=== PATIENT | female | born 1985 | race Caucasian/White ===

== ENCOUNTER 2019-02-21 15:01 | Emergency (ER) ==
[2019-02-21 15:10] VITALS: BP 108/64; TEMP 99.5; BMI 26.6
--- NOTE | 2019-02-21 15:40 | ED.PDOC ---
General ED Provider: Dr. SUSI GARCIA Chief Complaint: Headache Stated Complaint: headache Time Seen by Physician: 15:38 (seen with nato) Mode of Arrival: Walk-In Information Source: Patient Exam Limitations: No limitations Nursing and Triage Documentation Reviewed and Agree: Yes Does patient meet sepsis criteria?: No System Inflammatory Response Syndrome: Not Applicable Sepsis Protocol: For patient's 13 years and over: Temp is 96.8 and below OR 101 and greater Pulse >90 BPM Resp >20/minute Acutely Altered Mental Status Are patient's symptoms suggestive of a new infection, such as: -Pneumonia -Skin, Soft Tissue -Endocarditis -UTI -Bone, Joint Infection -Implantable Device -Acute Abdominal Infection -Wound Infection -Meningitis -Blood Stream Catheter Infection -Unknown Neurological Complaint Exam - Headache Complaint/Exam Onset: Gradual Duration: 4 days Symptoms Are: Still present Timing: Constant Episodes Lasting: Days Worst Headache Ever: No Initial Severity: Moderate Current Severity: Moderate Location: Right, Frontal, Temporal Character: Reports: Throbbing Aggravating: Reports: None Alleviating: Reports: None Associated Signs and Symptoms: Denies: Dizziness, Seizure, Nausea, Vomiting, Sinus pressure, Fever, Neck pain, Neck stiffness, Decreased LOC, Visual changes Related History: Reports: Similar episode Related Surgical History: Reports: None SAH Risk Factors: Reports: None Meningitis Risk Factors: Reports: None SDH Risk Factors: Reports: None Temporal Arteritis Risk Factors: Reports: None Fundoscopic Exam: Present: Normal Findings Papilledema Present: No Temporal Artery Tenderness: Present: None Sinus Tenderness: Present: None TMJ Tenderness: Present: None Glascow Coma Scale (see protocol): 15 Meningeal Signs Positive: No Pain on Passive Flexion-Positive Kernig's: No ROM Limited In: No Limitiations Focal Weakness: Present: None Focal Sensory Loss: Present: None Gait: Normal Nystagmus Present: No Gag Reflex Present: Yes [id number]: Normal Findings Romberg Test Positive: No Differential Diagnoses: Migraine Review of Systems - Review Of Systems Constitutional: Reports: No symptoms Eyes: Reports: No symptoms Ears, Nose, Mouth, Throat: Reports: No symptoms Respiratory: Reports: No symptoms Cardiac: Reports: No symptoms GI: Reports: No symptoms : Reports: No symptoms Musculoskeletal: Reports: No symptoms Skin: Reports: No symptoms Neurological: Reports: Headache Endocrine: Reports: No symptoms Hematologic/Lymphatic: Reports: No symptoms All Other Systems: Reviewed and Negative Past Medical History - Past Medical History Previously Healthy: Yes Endocrine: Reports: None Cardiovascular: Reports: None Respiratory: Reports: None Hematological: Reports: None Gastrointestinal: Reports: None Genitourinary: Reports: None Neuro/Psych: Reports: Migraine Musculoskeletal: Reports: None Cancer: Reports: None Last Menstrual Period: 02/11/19 - Surgical History General Surgical History: Reports: None - Family History Family History: Reports: None - Social History Smoking Status: Former smoker Hx Substance Use: No Alcohol Screening: Occasionally Physical Exam - Physical Exam Appearance: Well-appearing, No pain distress, Well-nourished Eyes: XAVIER, EOMI, Conjunctiva clear ENT: Ears normal, Nose normal, Oropharynx normal Respiratory: Airway patent, Breath sounds clear, Breath sounds equal, Respirations nonlabored Cardiovascular: RRR, Pulses normal, No rub, No murmur GI/: Soft, Nontender, No masses, Bowel sounds normal, No Organomegaly Musculoskeletal: Normal strength, ROM intact, No edema, No calf tenderness Skin: Warm, Dry, Normal color Neurological: Sensation intact, Motor intact, Reflexes intact, Cranial nerves intact, Alert, Oriented Psychiatric: Affect appropriate, Mood appropriate - NIH Stroke Scale 1a. Level of Consciousness: 0=Alert and keenly responsive 1b. Level of Consciousness Questions: 0=Answers correctly to two questions 1c. Level of Consciousness Commands: 0=Performs two tasks correctly 2. Best Gaze: 0=Normal 3. Visual: 0=No visual loss 4. Facial Palsy: 0=Normal 5a. Motor Left Arm: 0=No drift,arm holds 90 degrees for 10 sec., leg 30 degrees for 5 sec. 5b. Motor Right Arm: 0=No drift,arm holds 90 degrees for 10 sec., leg 30 degrees for 5 sec. 6a. Motor Left Le=No drift,arm holds 90 degrees for 10 sec., leg 30 degrees for 5 sec. 7. Limb Ataxia: 0=Absent 8. Sensory: 0=Normal 9. Best Language: 0=No aphasia 10. Dysarthria: 0=Normal 11. Extincion and Inattention: 0=Normal Stroke Scale Total: 0 Critical Care Note - Critical Care Note Total Time (mins): 0 Course - Course Hematology/Chemistry: 02/21/19 15:43 02/21/19 15:43 Orders, Labs, Meds: Lab Review 02/21/19 02/21/19 02/21/19 14:55 15:43 15:43 WBC 7.01 RBC 4.59 Hgb 12.7 Hct 38.9 MCV 84.7 MCH 27.7 MCHC 32.6 RDW Coeff of Melissa 12.6 Plt Count 211 Immature Gran % (Auto) 0.3 Neut % (Auto) 66.9 Lymph % (Auto) 21.0 [place] % (Auto) 9.4 Eos % (Auto) 2.0 Baso % (Auto) 0.4 Immature Gran # (Auto) 0.0 Neut # (Auto) 4.7 Lymph # (Auto) 1.5 [place] # (Auto) 0.7 Eos # (Auto) 0.1 Baso # (Auto) 0.0 Sodium 139.2 Potassium 3.86 Chloride 101.7 Carbon Dioxide 26.8 Anion Gap 14.56 BUN 8.9 Creatinine 0.78 Estimated GFR (MDRD) 86.00 BUN/Creatinine Ratio 11.41 Glucose 92.4 Calcium 8.94 Total Bilirubin 1.35 H AST 33.8 ALT 16.3 Alkaline Phosphatase 63.0 Total Protein 8.05 Albumin 4.30 Globulin 3.75 Albumin/Globulin Ratio 1.14 Urine Test Negative Orders Category Date Time Status CBC W/ AUTO DIFF Stat LAB 02/21/19 15:43 Completed COMPREHENSIVE METABOLIC PANEL Stat LAB 02/21/19 15:43 Completed URINE Stat LAB 02/21/19 14:[address] HEAD W/O CONTRAST Stat RADS 02/21/19 15:37 Completed Vital Signs: Temp Pulse Resp BP Pulse Ox 02/21/19 15:03 99.5 F 100 H 20 108/64 98 Departure - Departure Time of Disposition: 16:43 Disposition: HOME SELF-CARE Discharge Problem: Headache Instructions: Migraine Headache (ED), Acute Headache (ED) Condition: Good Pt referred to PMD for follow-up: Yes IPMP verified?: No Additional Instructions: Please call your Family Physician as soon as possible to schedule a follow-up appointment. Prescriptions: Nabumetone [Relafen] 500 mg PO BIDWM #7 tablet Allergies/Adverse Reactions: Allergies acetaminophen [From Vicodin] Adverse Reaction (Verified 02/21/19 15:09) famotidine [From Pepcid] Adverse Reaction (Verified 02/21/19 15:09) hydrocodone [From Vicodin] Adverse Reaction (Verified 02/21/19 15:09) Home Medications: Ambulatory Orders Levonorgestrel-Ethin Estradiol [Levora-28 Tablet] 1 each PO DAILY 02/21/19 Nabumetone [Relafen] 500 mg PO BIDWM #7 tablet 02/21/19 Disposition Discussed With: Patient
[2019-02-21 16:01] LABS: URINE PREGNANCY TEST NEGATIVE (NEGATIVE)
--- NOTE | 2019-02-21 16:34 | CT ---
EXAM: CT scan of the head without contrast HISTORY: Headache TECHNIQUE: Helical imaging of the head was performed without contrast. 5 mm thin axial images and c oronal and sagittal images were provided for interpretation. FINDINGS: The gann-white interface appears normal. No acute hemorrhages are seen. There is no mass effect. The basal cisterns are patent. The paranasal sinuses and mastoid air cells are clear. The calvarium appears normal. IMPRESSION: No acute intracranial abnormalities are seen.
== END 2019-02-21 16:47 | disposition home or self-care (01) ==
LOC: ED 15:01
DX: R51 Headache (principal)
CPT/HCPCS: 36415; 80053; 81025; 85025; 99283